=== PATIENT | male | born 1985 | race Two or more races ===

== ENCOUNTER 2018-12-24 15:47 | Emergency (ER) | payer SELFPAY ==
[~2018-12-24] VITALS: Ht 157.5 cm; Wt 72.6 kg
[2018-12-24 18:30] VITALS: BP 125/64
--- NOTE | 2018-12-24 18:31 | PHYS DOC ---
Adult General Chief Complaint Chief Complaint: LOWER EXTREMITY SWELLING [facility] HPI Patient is a 33 year old male who presents with hand and feet swelling that began yesterday. Patient describes his pain as "sore". Rates his pain at a 8/10. Patient states he has been taking Tylenol. 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 (BLANCA ALEJO APRN) Review of Systems Review of Systems Constitutional: Denies fever or chills [] Eyes: Denies change in visual acuity, redness, or eye pain [] HENT: Denies nasal congestion or sore throat [] Respiratory: Denies cough or shortness of breath [] Cardiovascular: No additional information not addressed in HPI [] GI: Denies abdominal pain, nausea, vomiting, bloody stools or diarrhea [] : Denies dysuria or hematuria [] Musculoskeletal: Bilateral finger swelling and feet swelling. Denies back pain or joint pain [] Integument: Denies rash or skin lesions [] Neurologic: Denies headache, focal weakness or sensory changes [] Endocrine: Denies polyuria or polydipsia [] All other systems were reviewed and found to be within normal limits, except as documented in this note. (BLANCA ALEJO APRN) Allergies Allergies Allergies Coded Allergies Type Severity Reaction Last Updated Verified No Known Drug Allergies 12/24/18 No (JOSE MARTINEZ DO) Physical Exam Physical Exam Constitutional: Well developed, well nourished, no acute distress, non-toxic appearance. [] HENT: Normocephalic, atraumatic, bilateral external ears normal, oropharynx moist, no oral exudates, nose normal. [] Eyes: PERRLA, EOMI, conjunctiva normal, no discharge. [] Neck: Normal range of motion, no tenderness, supple, no stridor. [] Cardiovascular:Heart rate regular rhythm, no murmur [] Lungs & Thorax: Bilateral breath sounds clear to auscultation [] Abdomen: Bowel sounds normal, soft, no tenderness, no masses, no pulsatile masses. [] Skin: Warm, dry, no erythema, no rash. [] Back: No tenderness, no CVA tenderness. [] Extremities: No tenderness, no cyanosis, no clubbing, ROM intact, Bilateral fingers 2+ edema. [] Neurologic: Alert and oriented X 3, normal motor function, normal sensory function, no focal deficits noted. [] Psychologic: Affect normal, judgement normal, mood normal. [] (BLANCA ALEJO APRN) Current Patient Data Vital Signs Vital Signs Date Time Temp Pulse Resp B/P (MAP) Pulse Ox O2 Delivery O2 Flow Rate FiO2 12/24/18 18:30 98.6 71 14 125/64 (84) 99 Room Air 98.6 (MARTINEZJOSE MONTANEZ DO) EKG EKG [] (BLANCA ALEJO APRN) Radiology/Procedures Radiology/Procedures [] (BLANCA ALEJO APRN) Course & Med Decision Making Course & Med Decision Making Patient is a 33 year old male who presents with hand and feet swelling that began yesterday. Patient describes his pain as "sore". Rates his pain at a 8/10. Patient states he has been taking Tylenol. 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 Patient has swelling in all 5 fingers in bilateral hands only. Patient can bend fingers at all joints but states it feels tight because of the 2+ swelling. No joint swelling or redness. Denies soa, chest pain, nausea, dizziness, numbness or tingling, limb color or temperature change. Skin is pink warm and dry. Vital sign wnl. Patient denies doing anything out of the usual or using any chemicals. Alert and oriented. Denies medications or medical history. Cap refill < 3 seconds. Radial pulses present. I see no swelling in lower extremities. No calf pain bilaterally. Can wiggles all toes. Pedal pulses are present. No arm pain bilaterally with palpation. Denies any injuries or trauma. Patient is given a medrol dose pack and Ibuprofen. Patient is told to follow up with primary care. He is provided with resources. (BLANCA ALEJO APRN) Dragon Disclaimer Dragon Disclaimer This electronic medical record was generated, in whole or in part, using a voice recognition dictation system. (BLANCA ALEJO APRN) Departure Departure Impression: Primary Impression: Bilateral hand swelling Disposition: 01 HOME, SELF-CARE Condition: STABLE Referrals: NO PCP (PCP) Patient Instructions: Arthritis, Nonspecific, Edema Additional Instructions: Follow up with primary care provider as soon as possible. Take medications as prescribed. Scripts Ibuprofen (IBUPROFEN) 600 Mg Tablet 600 MG PO PRN Q6HRS PRN for INFLAMMATION, #20 TAB Prov: BLANCA ALEJO APRN 12/24/18 Methylprednisolone (MEDROL) 4 Mg Tab.ds.pk 1 PKG PO UD, #1 PKG Prov: BLANCA ALEJO APRN 12/24/18 Attending Signature Attending Signature I have reviewed the PA/PROFESSOR OF ART HISTORY's note and plan of care. I was available for consultation as needed during the patient's visit in the emergency department. I agree with the clinical impression, plan, and disposition. (JOSE MARTINEZ DO) BLANCA ALEJO APRN Dec 24, 2018 18:31 JOSE MARTINEZ DO Dec 26, 2018 08:07
[2018-12-24] MEDS ORDERED: METH4TAB2 PO (18:41)
[2018-12-24] MEDS ORDERED: IBUP-1007 PO (18:41)
== END 2018-12-24 18:50 | disposition home or self-care (01) ==
LOC: ER 15:47
DX: M79.89 Other specified soft tissue disorders (principal)
CPT/HCPCS: 99283